=== PATIENT | male | born 1955 | race Caucasian/White ===

== ENCOUNTER 2022-05-07 06:33 | Day surgery (SDC) | payer MEDICARE, BC ==
[2022-04-30 11:38] LABS: BASOPHILS # (AUTO) 0.1 X10'3 (0-0.2); BASOPHILS % (AUTO) 1.1 % (0-1); EOSINOPHILS # (AUTO) 0.1 X10'3 (0-0.9); EOSINOPHILS % (AUTO) 2.6 % (0-6); LYMPHOCYTES # (AUTO) 1.4 X10'3 (1.1-4.8); LYMPHOCYTES % (AUTO) 26.8 % (21-51); MEAN CORPUSCULAR HEMOGLOBIN 30.2 PG (27.0-31.0); MEAN CORPUSCULAR HGB CONC 34.6 g/dL (33.0-36.5); MEAN CORPUSCULAR VOLUME 87.5 FL (78-98); MONOCYTES # (AUTO) 0.6 X10'3 (0-0.9); MONOCYTES % (AUTO) 10.6 % (2-12); NEUTROPHILS # (AUTO) 3.1 X10'3 (1.8-7.7); NEUTROPHILS % (AUTO) 58.9 % (42-75); PRE OP HEMATOCRIT 46.1 % (42.0-52.0); PRE OP HEMOGLOBIN 15.9 g/dL (14.0-17.9); PRE OP PLATELET COUNT 183 X10'3 (140-440); RED BLOOD COUNT 5.27 X10'6 (4.70-6.10); RED CELL DISTRIBUTION WIDTH 13.8 % (11.5-14.5)
[2022-04-30 11:53] LABS: ALBUMIN 3.8 G/DL (3.4-5.0); ALBUMIN/GLOBULIN RATIO 1.2 (1.1-1.5); ALKALINE PHOSPHATASE 60 IU/L (46-116); BLOOD UREA NITROGEN 17 MG/DL (7-18); BUN/CREATININE RATIO 16.3 (5.4-32.0); CHLORIDE 103 MMOL/L (99-107); CREATININE 1.04 MG/DL (0.60-1.10); PRE OP ALT 54 U/L (30-65); PRE OP ANION GAP 8 (8-16); PRE OP AST 34 U/L (10-37); PRE OP BILIRUB, TOTAL 0.6 MG/DL (0.0-1.0); PRE OP GLUCOSE 105 MG/DL (70-104); PRE OP POTASSIUM 4.3 MMOL/L (3.4-5.1); PRE OP SODIUM 137 MMOL/L (135-145); TOTAL CARBON DIOXIDE 26.2 MMOL/L (24-32); eGFR 71 ML/MIN
[~2022-05-07] VITALS: Ht 177.8 cm; Wt 130.3 kg
[~2022-05-07 06:33] MED LIST: DICL150D9 TOP; LANS15CA18 PO; LISI20TA28 PO; TEST200V33 IM; ceFAZolin inj. 2,000 MG in dextrose 5%-water 100 ML IV ONE; famotidine 20mg tablet PO ONE; ringers solution, lacted 1,000 ML IV SCH
[2022-05-07] MEDS ORDERED: BUPIVAcaine/PF 5 mg/ml 10ml ONE ×3 (06:46→10:11)
[2022-05-07] MEDS ORDERED: proCHLORperazine 10 MG/2 ml inj IV PRN (07:45)
[2022-05-07] MEDS ORDERED: ondansetron/PF 4mg/2ml inj IV PRN (07:45)
[2022-05-07] MEDS ORDERED: hydrALAZINE 20mg/ml inj. IV PRN (07:45)
[2022-05-07] MEDS ORDERED: morphine 2 MG/ML inj. syringe IV PRN (07:45)
[2022-05-07] MEDS ORDERED: fentaNYL/PF 50MCG/1 ML 2ML syringe IV PRN ×2 (07:45)
[2022-05-07] MEDS ORDERED: labetalol 20mg/4ml (5mg/ml) syringe IV PRN (07:45)
[2022-05-07] MEDS ORDERED: morphine 4 MG/ML inj SYRINge IV PRN (07:45)
[2022-05-07] MEDS ORDERED: meperidine/PF 25mg/ml syringe IV PRN (07:45)
[2022-05-07] MEDS ORDERED: ringers solution, lacted 1,000 ML IV SCH (07:45)
[2022-05-07] MEDS ORDERED: midazolam 1 mg/ML 2ml injection ONE ×2 (10:02→10:21)
[2022-05-07] MEDS ORDERED: FENTANYL CITRATE/PF 50 MCG/1 ML VIAL ONE (10:02)
[2022-05-07 10:40] VITALS: BP 112/62
--- NOTE | 2022-05-07 10:40 | NUR ---
Received from OR via [facility] , accompanied by Anesthesiologist SHIRA and report given by Anesthesiolgist. PATIENT WITH WRIST DRESSING TO LEFT THAT IS CDI. VSS. DENIES PAIN. PATIENT VSS AT THIS TIME. Addendum: 05/07/22 at 1056 by Chato Christianson RN RN Amended: Links added.
[2022-05-07 10:50] VITALS: BP 114/64
[2022-05-07 11:00] VITALS: BP 110/70
[2022-05-07 11:10] VITALS: BP 105/68
[2022-05-07 11:17] VITALS: BP 123/80
[2022-05-07 11:18] VITALS: BP 123/80
--- NOTE | 2022-05-07 11:20 | NUR ---
ALL DISCHARGE CRITERIA HAS BEEN MET. VSS, PAIN AT A TOLERABLE LEVEL, VOIDING AND ABLE TO SAFELY AMBULATE AND TRANSFER SELF. IV TAKEN OUT WITHOUT ANY COMPLICATIONS. ALL DISCHARGE INSTRUCTIONS COVERED WITH PATIENT AND ALL QUESTIONS ANSWERED. PATIENT TAKEN Addendum: 05/07/22 at 1137 by Chato Christianson RN RN Amended: Links added.
== END 2022-05-07 11:20 | disposition home or self-care (01) ==
LOC: PAS 06:33
PROVIDERS: ATTEND Orthopaedic Surgery Hand Surgery
DX: G56.02 Carpal tunnel syndrome, left upper limb (principal); I10 Essential (primary) hypertension; G47.30 Sleep apnea, unspecified; Z79.899 Other long term (current) drug therapy; Z98.890 Other specified postprocedural states; Z96.653 Presence of artificial knee joint, bilateral; Z87.891 Personal history of nicotine dependence
CPT/HCPCS: 29848; 36415; 80053; 82948; 85025; 93005; J0690; J2250; J3010; J3490; J7030; J7060; J7120; Z7506; Z7512; A4215; A6449; A7000

== ENCOUNTER 2025-03-22 09:48 | Outpatient (CLI) | payer MEDICARE, BC ==
[~2025-03-22 09:48] MED LIST changes: +DICL150D11 TOP; -DICL150D9 TOP; -ceFAZolin inj. 2,000 MG in dextrose 5%-water 100 ML IV ONE; -famotidine 20mg tablet PO ONE; -ringers solution, lacted 1,000 ML IV SCH
[2025-03-22 10:48] LABS: CREATININE 0.97 MG/DL (0.60-1.10); TOTAL CARBON DIOXIDE 27.7 MMOL/L (24-32); eGFR 77 ML/MIN
== END 2025-03-22 23:59 | disposition home or self-care (01) ==
LOC: RAD 09:48
PROVIDERS: ATTEND Nurse Practitioner Family
DX: E87.5 Hyperkalemia (principal)
CPT/HCPCS: 36415; 80053

== ENCOUNTER 2025-04-09 11:47 | Outpatient (CLI) | payer MEDICARE, BC ==
[2025-04-09 12:34] LABS: CREATININE 1.17 MG/DL (0.60-1.10); TOTAL CARBON DIOXIDE 28.8 MMOL/L (24-32); eGFR 62 ML/MIN
== END 2025-04-09 23:59 | disposition home or self-care (01) ==
LOC: RAD 11:47
PROVIDERS: ATTEND Nurse Practitioner Family
DX: E87.6 Hypokalemia (principal)
CPT/HCPCS: 36415; 80053